=== PATIENT | female | born 1965 | race Caucasian/White ===

== ENCOUNTER 2017-05-18 14:00 | Outpatient (RCR) | payer MEDICARE | END 2017-05-18 14:30 | disposition home or self-care (01) | LOC: PT 14:00 | DX: M54.2 Cervicalgia (principal); M54.9 Dorsalgia, unspecified; Z98.1 Arthrodesis status | CPT/HCPCS: G8985-GP ==

== ENCOUNTER 2017-11-18 21:20 | Emergency (ER) | payer MEDICARE ==
[2017-11-18 21:53] LABS: HEMATOCRIT 36.8 % (37.0-47.0); HEMOGLOBIN 12.2 g/dL (12.5-16.0); MEAN CELL VOLUME 88 fl (78-100); MEAN CORPUSCULAR HEMOGLOBIN 29 pg (27-31); MEAN CORPUSCULAR HGB CONC 33 g/dL (33-37); MEAN PLATELET VOLUME 9.5 fl (7.4-10.4); PLATELET COUNT 233 K/mm3 (130-400); RED CELL DISTRIBUTION WIDTH 13.9 % (11.5-14.5); WHITE BLOOD COUNT 12.6 K/mm3 (4.8-10.8)
[2017-11-18 22:06] LABS: ALBUMIN 4.2 g/dL (3.5-5.0); CALCIUM 8.9 mg/dL (8.4-10.2); TOTAL BILIRUBIN 0.5 mg/dL (0.2-1.3); TOTAL PROTEIN 7.7 g/dL (6.3-8.2)
[2017-11-18 22:07] LABS: BAND 3 % (0-10)
[2017-11-18 22:08] LABS: LYMPHOCYTE 10 % (20-51); MONOCYTE 7 % (3-10); NEUTROPHILS 80 % (42-75)
[2017-11-18] MEDS ORDERED: AZITHROMYCIN500 M2 PO (22:49)
[2017-11-18] MEDS ORDERED: PREDNISONE20 M1 PO (22:49)
[2017-11-18] MEDS ORDERED: ALBUTEROL1.25 MG/3 IH (22:49)
[2017-11-18] MEDS ORDERED: PULMICORT0.5 MG/2 M IH (22:49)
[2017-11-18 23:00] VITALS: BP 134/80
[2017-11-18] MEDS ORDERED: ATIVAN1 M1 PO (23:17)
[2017-11-18] MEDS ORDERED: CYMBALTA60 M1 PO (23:18)
[2017-11-18] MEDS ORDERED: NEURONTIN600 M1 PO (23:18)
== END 2017-11-18 23:00 | disposition home or self-care (01) ==
LOC: ED 21:20
PROVIDERS: Physician Assistant
DX: J68.3 Other acute and subacute respiratory conditions due to chemicals, gases, fumes and vapors (principal); J84.9 Interstitial pulmonary disease, unspecified; T52.91XA Toxic effect of unspecified organic solvent, accidental (unintentional), initial encounter; J45.909 Unspecified asthma, uncomplicated; Y99.0 Civilian activity done for income or pay; F17.210 Nicotine dependence, cigarettes, uncomplicated; Z79.899 Other long term (current) drug therapy
CPT/HCPCS: J2930

== ENCOUNTER → 2019-04-21 | Outpatient (CLI) | payer BC, MEDICARE ==
[2018-01-06 10:56] VITALS: BP 102/61
[~2019-04-21] MED LIST: ALBUTEROL1.25 MG/3 IH; ATIVAN1 M1 PO; AZITHROMYCIN500 M2 PO; CYMBALTA60 M1 PO; NEURONTIN600 M1 PO; PREDNISONE20 M1 PO; PROAIR HFA0.09 MG/AC IH; PULMICORT0.5 MG/2 M IH; RT ALBUTEROL CC18 GM IH
== END ==
LOC: RAD 15:52
DX: S89.92XA Unspecified injury of left lower leg, initial encounter (principal)

== ENCOUNTER → 2020-01-03 | Outpatient (CLI) | payer MEDICARE ==
[2018-01-06 10:56] VITALS: BP 102/61
== END ==
LOC: RAD 11:30
DX: K04.7 Periapical abscess without sinus (principal); K11.8 Other diseases of salivary glands
CPT/HCPCS: Q9967